=== PATIENT | female | born 1990 | race American Indian/Alaskan Native ===

== ENCOUNTER 2018-09-28 21:44 | Outpatient (CLI) | payer MEDICAID ==
[2018-09-28] MEDS ORDERED: CELESTONE SOLUSPAN IM ONE (22:48)
[2018-09-28 22:57] VITALS: BP 139/68
== END 2018-09-28 23:23 | disposition home or self-care (01) ==
LOC: TRG 21:44
PROVIDERS: ATTEND Obstetrics & Gynecology
DX: O60.03 Preterm labor without delivery, third trimester (principal); O24.414 Gestational diabetes mellitus in pregnancy, insulin controlled; Z3A.35 35 weeks gestation of pregnancy
CPT/HCPCS: 96372; J0702

== ENCOUNTER 2018-09-29 22:32 | Outpatient (CLI) | payer MEDICAID ==
[2018-09-29] MEDS ORDERED: CELESTONE SOLUSPAN IM ONE (22:35)
[2018-09-29 22:38] VITALS: BP 128/73
== END 2018-09-29 22:53 | disposition home or self-care (01) ==
LOC: TRG 22:32
PROVIDERS: ATTEND Obstetrics & Gynecology
DX: O62.9 Abnormality of forces of labor, unspecified (principal); O24.414 Gestational diabetes mellitus in pregnancy, insulin controlled; Z3A.35 35 weeks gestation of pregnancy
CPT/HCPCS: 96372; J0702

== ENCOUNTER 2018-10-08 21:40 | Outpatient (CLI) | payer MEDICAID ==
[2018-10-08] MEDS ORDERED: LACTATED RINGERS 500 ML IV ONE (22:07)
[2018-10-08 22:43] LABS: Bilirubin,Urine NEG (Negative); Blood,Urine NEG (Negative); Color,Urine Yellow (Yellow); Protein,Urine <15 mg/dL mg/dL (Negative); Urobilinogen,Urine < 2.0 mg/dL (<2.0)
[2018-10-08] MEDS ORDERED: LACTATED RINGERS 1,000 ML IV SCH (23:00)
[2018-10-08 23:44] VITALS: BP 121/72
== END 2018-10-09 00:16 | disposition home or self-care (01) ==
LOC: TRG 21:40
PROVIDERS: ATTEND Obstetrics & Gynecology
DX: O62.8 Other abnormalities of forces of labor (principal); Z3A.36 36 weeks gestation of pregnancy
CPT/HCPCS: 59025; 81001; 82962

== ENCOUNTER 2018-10-26 06:59 | Inpatient (IN) | payer MEDICAID ==
[2018-10-26] MEDS ORDERED: LACTATED RINGERS 2,000 ML ONE (07:55)
[2018-10-26 09:02] LABS: Hematocrit 38.3 % (30.3-42.9); Hemoglobin 12.9 gm/dl (10.1-14.3)
--- NOTE | 2018-10-26 09:02 | History and Physical Report ---
History of Present Illness Date of examination: 10/26/18 Date of admission: 10/26/2018 Chief complaint: Active labor History of present illness: 28y/o @ 38+3 weeks presents in active labor with advanced cervical dilatation. The patient initiated care at 20 weeks estimated gestational age. Her course is complicated by gestational diabetes. The patient denies leakage of fluid. GBS negative. Past History Past Medical History: other (gestational diabetes) Past Surgical History: no surgical history Social history: - Obstetrical History Expected Date of Delivery: 11/06/18 Actual Gestation: 38 Week(s) 3 Day(s) : 4 Para: 2 Hx # Term Pregnancies: 2 Number of Pregnancies: 0 Spontaneous Abortions: 1 Induced : 0 Number of Living Children: 2 Medications and Allergies Allergies Allergy/AdvReac Type Severity Reaction Status Date / Time No Known Allergies Allergy Verified 09/29/18 22:35 Home Medications Medication Instructions Recorded Confirmed Last Taken Type One Daily Tablet 1 tab PO DAILY 10/26/18 10/26/18 Unknown History Active Meds: Active Medications Pneumococcal Polyvalent Vaccine (Pneumovax 23) 0.5 ml IM .ONCE ONE Stop: 10/26/18 08:20 Review of Systems All systems: negative Genitourinary: contractions - Vital Signs Vital signs: Vital Signs Pulse BP 103 H 130/71 10/26/18 07:59 10/26/18 07:59 Temp Pulse Resp BP Pulse Ox 97.8 F 93 H 20 123/61 10/26/18 08:00 10/26/18 08:59 10/26/18 08:00 10/26/18 08:59 - Physical Exam Breasts: Positive: deferred Cardiovascular: Regular rate Lungs: Positive: Clear to auscultation Abdomen: Positive: normal appearance Results Result Diagrams: 10/26/18 08:00 All other labs normal. Assessment and Plan - Patient Problems (1) Active labor at term Current Visit: Yes Status: Acute Plan to address problem: Admit to labor and delivery (2) Gestational diabetes Current Visit: Yes Status: Acute
[2018-10-26] MEDS ORDERED: LACTATED RINGERS 1,000 ML ONE (09:15)
[2018-10-26 09:18] LABS: Hematocrit 38.6 % (30.3-42.9); Hemoglobin 12.9 gm/dl (10.1-14.3); Mean Corpuscular HGB Conc 34 % (30-34); Mean Corpuscular Volume 87 fl (79-97); Platelet Count 321 K/mm3 (140-440); Red Blood Count 4.43 M/mm3 (3.65-5.03); Red Cell Distribution Width 16.6 % (13.2-15.2)
--- NOTE | 2018-10-26 09:24 | Anesthesia Consultation ---
Anesthesia Consult and Med Hx Date of service: 10/26/18 - Airway Anesthetic Teeth Evaluation: Good ROM Head & Neck: Adequate Mental/Hyoid Distance: Adequate Mallampati Class: Class II Intubation Access Assessment: Probably Good - Pre-Operative Health Status ASA Pre-Surgery Classification: ASA2 Proposed Anesthetic Plan: Epidural, Spinal - Pulmonary Hx Asthma: No COPD: No Hx Pneumonia: No - Cardiovascular System Hx Hypertension: No - Central Nervous System Hx Seizures: No Hx Psychiatric Problems: No - Endocrine Hx Renal Disease: No Hx End Stage Renal Disease: No Hx Hypothyroidism: No Hx Hyperthyroidism: No - Hematic Hx Anemia: No Hx Sickle Cell Disease: No - Other Systems Hx Alcohol Use: No
[2018-10-26] MEDS ORDERED: NARCAN 2 MG/2 ML IV PRN (09:25)
[2018-10-26] MEDS ORDERED: PITOCin/NS 20 UNIT/1000ML DRIP 20,000 MILLIUNITS/1,000 ML BAG IV ONE (09:57)
[2018-10-26] MEDS ORDERED: fentaNYL-BUPIV 2 MCG/ML-0.125% 200 MCG/100 ML BAG EPIDURAL SCH (10:00)
[2018-10-26] MEDS ORDERED: BRETHINE SUB-Q PRN (11:49)
[2018-10-26] MEDS ORDERED: BRETHINE IVP PRN (11:49)
[2018-10-26] MEDS ORDERED: XYLOCAINE 2% INFILTRATI ONE (11:49)
[2018-10-26] MEDS ORDERED: MINERAL OIL PO PRN (11:49)
[2018-10-26] MEDS ORDERED: TUCKS PAD TP PRN (11:50)
[2018-10-26] MEDS ORDERED: BENADRYL PO PRN (11:50)
[2018-10-26] MEDS ORDERED: TYLENOL PO PRN (11:50)
[2018-10-26] MEDS ORDERED: DULCOLAX PR PRN (11:50)
[2018-10-26] MEDS ORDERED: ZOFRAN IV PRN (11:50)
[2018-10-26] MEDS ORDERED: MILK OF MAGNESIA PO PRN (11:50)
[2018-10-26] MEDS ORDERED: PHENERGAN PR PRN (11:50)
[2018-10-26] MEDS ORDERED: LANSINOH TP PRN (11:50)
[2018-10-26] MEDS ORDERED: PHENERGAN PO PRN (11:50)
--- NOTE | 2018-10-26 11:56 | Procedure Note ---
OB Delivery Note - Delivery Date of Delivery: 10/26/18 Surgeon: DERECK TELLEZ Estimated blood loss: 200cc - Vaginal Delivery presentation: vertex Delivery position: OA Intrapartum events: other(please specify) (gestational diabetes) Delivery monitor: external FHT Route of delivery: Delivery placenta: spontaneous Delivery cord: 3 umbilical vessels Episiotomy: none Delivery laceration: 2nd degree Delivery repair: vicryl Anesthesia: epidural Delivery comments: The patient progressed to complete complete +2 and post deliver a liveborn male infant with Apgars of 8 and 9 weight 7 lbs. 8 oz. After delivery of the head the shoulders delivered without difficulty. The infant was bulb suctioned. The cord was clamped and cut and the was placed on the patient's abdomen. The placenta delivered spontaneously intact with a three-vessel cord. The patient sustained a second-degree midline laceration that was complete repaired in normal fashion with 2-0 Vicryl. Estimated blood loss of 200 mL - Infant A at 1 minute: 8 at 5 minutes: 9 Infant Gender: Male (weight 7 lbs. 8 oz.)
[2018-10-26] MEDS ORDERED: PITOCin/NS 20 UNIT/1000ML DRIP 20 UNITS/1,000 ML BAG IV SCH (12:00)
[2018-10-26] MEDS ORDERED: LACTATED RINGERS 1,000 ML IV SCH (12:00)
[2018-10-26] MEDS ORDERED: SODIUM CHLORIDE FLUSH SYRINGE 10 ML IV SCH (12:00)
[2018-10-26] MEDS ORDERED: METHERGINE IM ONE ×2 (13:39→13:49)
[2018-10-26] MEDS: NORCO 5/325 PO PRN ×2 (15:40→21:45)
--- NOTE | 2018-10-26 15:55 | Post Anesthesia Evaluation ---
- Post Anesthesia Evaluation Patient Participated: Yes Airway Patent: Yes Stable Respiratory Function: Yes Nausea/Vomiting: No Temp > 96.8F: Yes Pain Manageable: Yes Adequeate Hydration: Yes Anesthesia Complications: No Block Receding Appropriately: Yes Patient on Ventilator: No
[2018-10-26] MEDS: IBUPROFEN PO SCH ×2 (18:01→23:59)
[2018-10-27 00:15] LABS: Hematocrit 35.4 % (30.3-42.9); Hemoglobin 11.6 gm/dl (10.1-14.3)
[2018-10-27] MEDS: IBUPROFEN PO SCH ×3 (05:24→18:34)
[2018-10-27] MEDS: NORCO 5/325 PO PRN ×2 (05:24→12:21)
[2018-10-27] MEDS ORDERED: PNEUMOVAX 23 IM ONE (12:00)
[2018-10-27 17:01] VITALS: BP 118/73
--- NOTE | 2018-10-27 17:56 | Progress Note ---
Assessment and Plan A: PPD#1 s/p , GDM, Pt requesting discharge P: Routine care Subjective - Subjective Date of service: 10/27/18 Principal diagnosis: s/p at term, GDM Interval history: No issues overnight. Asking to be discharged. Patient reports: appetite normal, voiding normally, pain well controlled, ambulating normally Julian: doing well Objective - Vital Signs Latest vital signs: Vital Signs Temp Pulse Resp BP 10/27/18 16:40 98.5 F 90 18 118/73 10/27/18 12:23 18 10/27/18 12:21 18 10/27/18 08:17 98.1 F 81 18 103/66 10/27/18 00:00 98.6 F 63 16 119/71 10/26/18 20:00 98.7 F 71 18 102/69 Intake and Output 10/27/18 10/27/18 10/27/18 06:59 14:59 22:59 Intake Total 300 480 480 Balance 300 480 480 Intake: Oral 480 480 Intake, Free Water 300 Other: Total, Intake Amount 480 480 - Exam Breasts: Present: deferred Cardiovascular: Present: Regular rate Lungs: Present: Clear to auscultation Abdomen: Present: soft Uterus: Present: fundal height below umbilicus Extremities: Present: normal - Labs Labs: Abnormal lab results 10/27/18 Range/Units 10:45 POC Glucose 118 H (70-105)
--- NOTE | 2018-10-27 18:00 | Discharge Summary ---
Providers - Providers Date of Admission: 10/26/18 07:00 Date of discharge: 10/27/18 Attending physician: DERECK TELLEZ Primary care physician: DERECK TELLEZ Hospitalization Reason for admission: active labor Delivery: Procedure details: Please see delivery note. Episiotomy: none Laceration: 2nd degree Other procedures: none complications: none Discharge diagnosis: IUP at term delivered baby: male Hospital course: Pt admitted in labor. Her course was uncomplicated and she met discharge criteria on PPD#1. She will follow up in 6 wks in the office. Condition at discharge: Stable Disposition: [id number]-01 TO HOME OR SELFCARE - Discharge Diagnoses (1) Term of male Status: Acute (2) Active labor at term Status: Acute (3) Gestational diabetes Status: Acute Qualifiers: Gestational diabetes mellitus control: diet-controlled Trimester: third trimester Qualified Code(s): O24.410 - Gestational diabetes mellitus in , diet controlled Plan - Discharge Medications Prescriptions: Ibuprofen [Motrin] 800 mg PO Q8HR PRN #30 tablet PRN Reason: Pain, Moderate (4-6) HYDROcodone/APAP 5-325 [[place] 5/325] 1 each PO Q6HR PRN #20 tablet PRN Reason: Pain - Provider Discharge Summary Activity: routine, no sex for 6 weeks, no heavy lifting 4 weeks, no strenuous exercise Diet: routine Instructions: routine Additional instructions: [] Smoking cessation referral if applicable(refer to patient education folder for contact #) [] Refer to [facility] Booklet Call your doctor immediately for: * Fever > 100.5 * Heavy vaginal bleeding ( >1 pad per hour) * Severe persistent headache * Shortness of breath * Reddened, hot, painful area to leg or breast * Drainage or odor from incision. * Keep incision clean and dry at all times and follow doctor's instructions regarding bathing/showering - Follow up plan Follow up: CLARISA MAHER CNM [Advanced Practice Nurse] - 12/07/18 (Please call to schedule appt. Please call to schedule your son's circumcision before he is one month old. ) Forms: [facility] Discharge Summary, Discharge Signature Page
== END 2018-10-27 18:50 | disposition home or self-care (01) | DRG 775 ==
LOC: TRG 06:59 → LD 07:00 → TRG 07:22 → LD 07:54 → OB 14:59
PROVIDERS: ADMIT Obstetrics & Gynecology; ATTEND Obstetrics & Gynecology
PROC: 10E0XZZ Delivery of Products of Conception, External Approach (ICD-10-PCS; principal; 2018-10-26)
PROC: 0KQM0ZZ Repair Perineum Muscle, Open Approach (ICD-10-PCS; 2018-10-26)
PROC: 3E0R3BZ Introduction of Anesthetic Agent into Spinal Canal, Percutaneous Approach (ICD-10-PCS; 2018-10-26)
PROC: 00HU33Z Insertion of Infusion Device into Spinal Canal, Percutaneous Approach (ICD-10-PCS; 2018-10-26)
PROC: 3E0234Z Introduction of Serum, Toxoid and Vaccine into Muscle, Percutaneous Approach (ICD-10-PCS; 2018-10-27)
DX: O24.420 Gestational diabetes mellitus in childbirth, diet controlled (principal); O70.1 Second degree perineal laceration during delivery; Z37.0 Single live birth; Z3A.38 38 weeks gestation of pregnancy; Z23 Encounter for immunization
CPT/HCPCS: 36415; 82962; 85014; 85018; 85027; 86706; 86850; 86900; 86901; G0378; J2210; J2590; J7120